=== PATIENT | female | born 1960 | race Caucasian/White ===

== ENCOUNTER 2018-04-16 00:45 | Inpatient (IN) ==
[2018-04-16] MEDS ORDERED: KETOROLAC 30 MG/1 ML VIAL IV STA (02:53)
[2018-04-16] MEDS ORDERED: MORPHINE 4 MG/1 ML VIAL IV PRN (04:58)
[2018-04-16] MEDS ORDERED: ONDANSETRON 4 MG/2 ML VIAL IV PRN (04:58)
[2018-04-16] MEDS ORDERED: LEVOFLOXACIN INJ 250 MG in PREMIX 1 EACH IV SCH (06:00)
[2018-04-16] MEDS: SODIUM CHLORIDE 0.9% 1,000 ML IV SCH ×3 (06:50→17:23)
[2018-04-16] MEDS ORDERED: LEVOFLOXACIN INJ 0 ML IV ONE (10:05)
[2018-04-16] MEDS: LACTATED RINGERS 1,000 ML IV SCH ×2 (10:05→14:30)
[2018-04-16] MEDS ORDERED: PROPOFOL 200 MG/20 ML VIAL IV ONE (10:42)
[2018-04-16] MEDS ORDERED: ONDANSETRON 4 MG/2 ML VIAL ONE (10:42)
[2018-04-16] MEDS ORDERED: MIDAZOLAM 2 MG/2 ML VIAL ONE (10:42)
[2018-04-16] MEDS ORDERED: fentaNYL 100 MCG/2 ML VIAL ONE (10:42)
[2018-04-16] MEDS ORDERED: PHENYLEPHRINE 1 MG/10 ML SYRINGE IV ONE (10:42)
[2018-04-16] MEDS ORDERED: SEVOFLURANE 1 UNIT/15 MINUTE INH ONE (10:42)
[2018-04-16 11:08] LABS: Apearance,Urine CLOUDY (Clear); Bacteria,Urine Occasional /HPF (Few); Bilirubin,Urine Negative (Negative); Blood, Urine Moderate mg/dL (Negative); Glucose,Urine (UA) Negative (Negative); Ketones,Urine 5 mg/dL (Negative); Mucus,Urine Occasional /LPF (Occasional); Nitrite,Urine Negative (Negative); Protein,Urine 100 MG/DL; RBC,Urine 46 /HPF (0-4); Squamous Epithelial Cell,Urine Occasional /HPF (0-10); Urine Color Yellow (Yellow); Urine Urobilinogen < 2.0 EU/DL (0.2-1.0); WBC,Urine 420 /HPF (0-6)
[2018-04-16 14:11] LABS: Calcium 8.3 MG/DL (8.5-10.1); Osmolality,Calculated 282.7 MOS/KG (273-304); Potassium 3.3 MMOL/L (3.5-5.1)
[2018-04-16] MEDS ORDERED: POTASSIUM CHLORIDE 20 MEQ TABLET PO STA ×2 (14:17→14:37)
[2018-04-16] MEDS ORDERED: ACETAMINOPHEN 325 MG TABLET PO STA (15:38)
[2018-04-16] MEDS ORDERED: ACETAMINOPHEN 325 MG TABLET ONE (15:48)
[2018-04-16] MEDS ORDERED: AZITHROMYCIN INJ 500 MG in SODIUM CHLORIDE 0.9% 250 ML IV SCH (16:00)
[2018-04-16] MEDS ORDERED: GENTAMICIN 80 MG/2 ML VIAL ONE (16:09)
[2018-04-16] MEDS ORDERED: GENTAMICIN INJ 120 MG in PREMIX 1 EACH IV ONE (17:00)
[2018-04-16] MEDS: ENOXAPARIN 30 MG/0.3 ML SYRINGE SUBCUT SCH (17:21)
[2018-04-16] MEDS: CITALOPRAM 40 MG TABLET PO SCH (17:21)
[2018-04-16] MEDS: PANTOPRAZOLE 40 MG TABLET PO SCH (17:21)
[2018-04-16] MEDS: amLODIPine 5 MG TABLET PO SCH (17:21)
[2018-04-16] MEDS: AZTREONAM 500 MG in SYRINGE 1 EACH IV SCH (17:25)
[2018-04-16] MEDS: ATORVASTATIN 10 MG TABLET PO SCH (21:01)
[2018-04-16] MEDS ORDERED: LEVOFLOXACIN INJ 500 MG in PREMIX 1 EACH IV ONE (22:00)
[2018-04-17] MEDS: AZTREONAM 500 MG in SYRINGE 1 EACH IV SCH ×3 (01:54→17:45)
[2018-04-17] MEDS: SODIUM CHLORIDE 0.9% 1,000 ML IV SCH ×2 (04:16→22:29)
[2018-04-17 06:28] LABS: Basophils % 0.2 % (0.0-0.8); Eosinophils % 0.6 % (0.00-10.9); Hematocrit 29.8 VOL% (35.7-47.0); Hemoglobin 9.8 GM/DL (12.0-16.0); Immature Granulocytes % 0.8 %; Immature Granulocytes Absolute 0.05 #; Lymphocytes # 0.9 10*3/uL (1.4-4.0); Lymphocytes % 13.9 % (21.3-54.2); Mean Corpuscular HGB Conc 32.9 GM/DL (32-36); Mean Corpuscular Hemoglobin 27 PG (27-34); Mean Corpuscular Volume 80.5 FL (87-102); Mean Platelet Volume 11.3 FL (9.6-12.0); Monocytes # 0.6 10*3/uL (0.11-0.8); Monocytes % 8.9 % (1.7-12.7); Neutrophils # 4.8 10*3/uL (1.4-7.4); Neutrophils % 75.6 % (38.7-73.9); Platelet Count 123 T/CUMM (130-400); Red Cell Distribution Width 15.4 % (9.3-17.3); White Blood Count 6.4 T/CUMM (4-12)
[2018-04-17 06:51] LABS: Band Neutrophils 1 % (0-10); Eosinophils 2 % (0-10); Hypochromasia 1+; Lymphocytes 16 % (20-55); Ovalocytes Slight; Platelet Estimate Normal; Segmented Neutrophils 77 % (50-85); Total Cells Counted 100
[2018-04-17 06:53] LABS: Albumin 2.1 G/DL (3.4-5.0); Bilirubin,Total 0.6 MG/DL (0.2-1.0); Calcium 7.8 MG/DL (8.5-10.1); Osmolality,Calculated 280.7 MOS/KG (273-304); Potassium 3.5 MMOL/L (3.5-5.1); Total Protein 6.6 G/DL (6.4-8.3)
[2018-04-17] MEDS: CITALOPRAM 40 MG TABLET PO SCH (10:29)
[2018-04-17] MEDS: amLODIPine 5 MG TABLET PO SCH (10:30)
[2018-04-17] MEDS: PANTOPRAZOLE 40 MG TABLET PO SCH (10:30)
[2018-04-17] MEDS: ENOXAPARIN 30 MG/0.3 ML SYRINGE SUBCUT SCH (10:32)
[2018-04-17] MEDS: ATORVASTATIN 10 MG TABLET PO SCH (20:46)
[2018-04-17] MEDS ORDERED: LEVOFLOXACIN INJ 250 MG in PREMIX 1 EACH IV SCH (22:00)
[2018-04-17] MEDS: LACTATED RINGERS 1,000 ML IV SCH (23:50)
[2018-04-18] MEDS: AZTREONAM 500 MG in SYRINGE 1 EACH IV SCH ×2 (02:50→10:33)
[2018-04-18] MEDS: SODIUM CHLORIDE 0.9% 1,000 ML IV SCH ×2 (10:32)
[2018-04-18] MEDS: CITALOPRAM 40 MG TABLET PO SCH (10:33)
[2018-04-18] MEDS: PANTOPRAZOLE 40 MG TABLET PO SCH (10:33)
[2018-04-18] MEDS: amLODIPine 5 MG TABLET PO SCH (10:33)
[2018-04-18] MEDS: ENOXAPARIN 30 MG/0.3 ML SYRINGE SUBCUT SCH (10:33)
[2018-04-18] MEDS: LACTATED RINGERS 1,000 ML IV SCH (10:35)
[2018-04-18 17:04] VITALS: BP 146/67
== END 2018-04-18 18:00 | disposition home or self-care (01) | DRG 465 ==
LOC: EDUNIT# → EDBD → N.ED 00:45 → N.EDINP 04:58 → N.5E 09:35